=== PATIENT | male | born 1975 | race African-American/Black ===

== ENCOUNTER 2018-05-05 10:13 | Emergency (ER) | payer OTHER ==
[~2018-05-05] VITALS: Ht 182.9 cm; Wt 77.0 kg
[2018-05-05 10:16] VITALS: Ht 182.9 cm; Wt 77.0 kg
[2018-05-05] MEDS ORDERED: SOD CHLORIDE 0.9% 1,000 ML IV STA (10:50)
[2018-05-05] MEDS ORDERED: ENALAPRILAT 1.25 MG INJ IV ONE (11:00)
[2018-05-05] MEDS ORDERED: HYDR25TA6 PO (11:39)
[2018-05-05] MEDS ORDERED: NICARDipine HCL 30 MG CAPSULE PO ONE (12:30)
--- NOTE | 2018-05-05 12:30 | ERD ---
ER Documentation Chief Complaint Chief Complaint bibra#88 for high bp(200s), on police custody, non-compliant with meds HPI 42-year-old man with a history of hypertension [facility] [employer] [facility] Patient states he has a long history of hypertension but has been noncompliant with his medications has not used medications for over 2 weeks. He denies chest pain or shortness of breath, no cough, no calf or leg swelling, no headache or blurry vision. Patient does have a long history of visual deficits ROS All systems reviewed and are negative except as per history of present illness. Medications Home Meds Active Scripts Hydrochlorothiazide* (Hydrochlorothiazide*) 25 Mg Tab, 25 MG PO DAILY, #30 TAB Prov:DENISA LAO MD 05/05/18 Allergies Allergies: Coded Allergies: No Known Allergy (Unverified , 05/05/18) PMhx/Soc Hypertension, possible hypertensive retinopathy History of Surgery: No Anesthesia Reaction: No Hx Neurological Disorder: No Hx Respiratory Disorders: No Hx Cardiac Disorders: Yes (HTN) Hx Psychiatric Problems: No Hx Miscellaneous Medical Probl: No Hx Alcohol Use: No Hx Substance Use: No Hx Tobacco Use: No Smoking Status: Former smoker FmHx Family History: No diabetes Physical Exam Vitals Vital Signs Date Temp Pulse Resp B/P (MAP) Pulse Ox O2 O2 Flow FiO2 Time Delivery Rate 05/05/18 60 15 163/109 96 Room Air 11:11 (127) 05/05/18 98.0 65 18 173/131 96 10:16 (145) Physical Exam GENERAL: Well-developed, well-nourished, well-hydrated, in no apparent distress, looks nontoxic in appearance HEENT: Moist mucous membranes, pink conjunctiva, no cervical spine tenderness or step-off deformities, no goiter, no jaundice or icterus, extraocular movements intact without pain. No submandibular induration, and no pharyngeal erythema NEURO: Alert and oriented 3, cranial nerves II through XII intact bilaterally, pupils equal round reactive to light, no focal deficits or facial asymmetry, sensation intact distally Strength 5/5 in upper and lower extremities bilaterally CARDIAC: Regular rate and rhythm, no murmurs rubs or gallops LUNGS: Clear bilaterally no wheezing crackles or stridor EXTREMITIES: No clubbing cyanosis or edema, calves are bilaterally symmetrical, no Homans sign, no popliteal cord sign. Distal pulses equal and bilateral PSYCH: Normal affect without agitation or irritability Result Diagram: 05/05/18 1107 05/05/18 1107 Results 24 hrs Laboratory Tests Test 05/05/18 11:07 White Blood Count 4.8 10^3/ul Red Blood Count 4.85 10^6/ul Hemoglobin 14.4 g/dl Hematocrit 44.9 % Mean Corpuscular Volume 92.6 fl Mean Corpuscular Hemoglobin 29.7 pg Mean Corpuscular Hemoglobin Concent 32.1 g/dl Red Cell Distribution Width 13.6 % Platelet Count 337 10^3/UL Mean Platelet Volume 8.9 fl Immature Granulocytes % 0.200 % Neutrophils % 57.1 % Lymphocytes % 30.1 % Monocytes % 11.0 % Eosinophils % 0.8 % Basophils % 0.8 % Nucleated Red Blood Cells % 0.0 /100WBC Immature Granulocytes # 0.010 10^3/ul Neutrophils # 2.8 10^3/ul Lymphocytes # 1.5 10^3/ul Monocytes # 0.5 10^3/ul Eosinophils # 0.0 10^3/ul Basophils # 0.0 10^3/ul Nucleated Red Blood Cells # 0.0 10^3/ul Sodium Level 142 mmol/L Potassium Level 3.8 mmol/L Chloride Level 104 mmol/L Carbon Dioxide Level 28 mmol/L Anion Gap 10 Blood Urea Nitrogen 22 mg/dl Creatinine 1.14 mg/dl Est Glomerular Filtrat Rate mL/min > 60 mL/min Glucose Level 99 mg/dl Calcium Level 10.2 mg/dl Current Medications Medications Dose Sig/Isidoro Start Time Status Last (Trade) Ordered Route PRN Stop Time Admin Dose Reason Admin Sodium 1,000 ml @ Q1H STAT 05/05/18 DC 05/05/18 Chloride 1,000 mls/hr IV 10:50 11:12 05/05/18 11:49 Enalaprilat 1.25 mg ONCE ONCE 05/05/18 DC 05/05/18 (Vasotec Iv) IV 11:00 11:12 05/05/18 11:01 Clonidine 0.1 mg ONCE ONCE 05/05/18 DC 05/05/18 (Catapres) PO 12:00 12:02 05/05/18 12:01 Procedures/MDM Patient was placed on pillar worker rhythm strip revealed a sinus rhythm at about 70 bpm. Patient was afebrile. I administered 1 L normal saline IV, enalapril 1.25 mg IV x1, then clonidine 0.1 mg p.o., lastly followed by nicardipine 30 mg p.o. for continued hypertension. Patient remains asymptomatic and his blood pressure has fallen 40 points syst olic. He is medically cleared at this time and okay to book. I provided him recommendations and reassurance and gave him a prescription for antihypertensives Differential diagnoses considered, included but not limited to acute coronary syndrome, pulmonary embolism, aortic dissection, abdominal aortic aneurysm, sepsis, stroke, meningitis, encephalitis, pneumonia, appendicitis, cholecystitis, bowel obstruction, pyelonephritis, nephrolithiasis, cystitis, as well as metabolic, hematologic, and electrolyte abnormalities. As well as abscess, cellulitis, fractures, and dislocations. Patient feels much better at this time, and vital signs are normal, symptoms have improved. I did give strict instructions to return to the ED if symptoms continue or worsen, patient will otherwise follow-up with primary care physician. Patient understood instructions and agreed to plan. Disclaimer: Inadvertent spelling and grammatical errors are likely due to EHR/dictation software use and do not reflect on the overall quality of patient care. Also, please note that the electronic time recorded on this note does not necessarily reflect the actual time of the patient encounter. Departure Diagnosis: Primary Impression: Hypertension Hypertension type: essential hypertension Qualified Codes: I10 - Essential (primary) hypertension Condition: Good Patient Instructions: Hypertension, Established, Detention Clearance DENISA LAO MD May 05, 2018 12:30
[2018-05-05 13:30] VITALS: BP 140/100; PULSE 65; RESP 16
== END 2018-05-05 13:30 ==
LOC: E/R 10:13
DX: I10 Essential (primary) hypertension (principal); Z87.891 Personal history of nicotine dependence
CPT/HCPCS: 36415; 80048; 85025; 96374; 99284; J7030